=== PATIENT | female | born 1975 | race Caucasian/White ===

== ENCOUNTER 2019-06-21 11:00 | Emergency (ER) | payer OTHER ==
[~2019-06-21] VITALS: Ht 162.6 cm; Wt 86.4 kg
[2019-06-21 11:45] LABS: PARTIAL THROMBOPLASTIN TIME 29 SECONDS (22-32)
[2019-06-21 11:46] LABS: ALANINE AMINOTRANSFERASE 25 U/L (12-78); ALBUMIN 3.9 G/DL (3.4-5.0); ALKALINE PHOSPHATASE 125 IU/L (46-116); ANION GAP 10 (8-16); ASPARTATE AMINO TRANSFERASE 12 U/L (10-37); BILIRUBIN,TOTAL 0.3 MG/DL (0.1-1.0); BLOOD UREA NITROGEN 18 MG/DL (7-18); BUN/CREATININE RATIO 25.4 (6.6-38.0); CALCIUM 9.4 MG/DL (8.5-10.1); CHLORIDE 105 MMOL/L (99-107); CREATININE 0.71 MG/DL (0.40-0.90); GLUCOSE 91 MG/DL (70-104); POTASSIUM 4.3 MMOL/L (3.5-5.1); SODIUM 141 MMOL/L (135-145); TOTAL CARBON DIOXIDE 25.8 MMOL/L (24-32); eGFR 89 ML/MIN
[2019-06-21 11:52] LABS: BASOPHILS % (AUTO) 0.7 % (0-1); EOSINOPHILS # (AUTO) 0.1 X10'3 (0-0.9); EOSINOPHILS % (AUTO) 2.1 % (0-6); HEMATOCRIT 38.6 % (35.0-45.0); HEMOGLOBIN 12.9 g/dl (12.0-16.0); LYMPHOCYTES # (AUTO) 1.8 X10'3 (1.1-4.8); LYMPHOCYTES % (AUTO) 25.6 % (21-51); MEAN CORPUSCULAR HEMOGLOBIN 28.9 PG (27.0-31.0); MEAN CORPUSCULAR HGB CONC 33.5 g/dL (33.0-36.5); MEAN CORPUSCULAR VOLUME 86.3 FL (78-98); MEAN PLATELET VOLUME 8.8 FL (7.4-10.4); MONOCYTES # (AUTO) 0.4 X10'3 (0-0.9); NEUTROPHILS # (AUTO) 4.5 X10'3 (1.8-7.7); NEUTROPHILS % (AUTO) 65.6 % (42-75); PLATELET COUNT 312 X10'3 (140-440); RED BLOOD COUNT 4.47 X10'6 (4.20-5.60); WHITE BLOOD COUNT 6.9 X10'3 (4.5-11.0)
[2019-06-21 12:41] LABS: D-DIMER 0.22 MG/L FEU (0-0.50)
[2019-06-21 13:10] VITALS: BP 159/97
== END 2019-06-21 13:11 | disposition home or self-care (01) ==
LOC: ER 11:01
DX: R07.89 Other chest pain (principal); I10 Essential (primary) hypertension; Z86.711 Personal history of pulmonary embolism
CPT/HCPCS: 36415; 71045; 80053; 84484; 85025; 85379; 85610; 85730; 93005; 99284